=== PATIENT | female | born 1970 | race Caucasian/White ===

== ENCOUNTER → 2017-09-25 | Outpatient (CLI) | payer BC ==
[2017-09-25 09:44] LABS: BILIRUBIN,URINE NEGATIVE (NEG); CLARITY,URINE CLEAR; COLOR,URINE YELLOW; GLUCOSE,URINE NEGATIVE (NEG); NITRITE,URINE NEGATIVE (NEG); PH,URINE 5.5; PROTEIN,URINE NEGATIVE (NEG-TRACE); UROBILINOGEN,URINE 0.2 mg/dL (0.2 mg/dL)
[2017-09-25 09:50] LABS: INR 0.9 (0.8-1.1); PARTIAL THROMBOPLASTIN TIME 25 SEC (24-38); PROTHROMBIN TIME PATIENT 12.1 SEC (11.7-14.0)
[2017-09-25 10:12] LABS: BACTERIA,URINE FEW /HPF (0-FEW); RBC,URINE RARE /HPF (0-2); SQUAMOUS EPITHELIAL CELL,UR FEW /LPF; WBC,URINE OCC /HPF (0-4)
[2017-09-25 10:13] LABS: HYALINE CASTS, URINE FEW /HPF
[2017-09-25 21:15] LABS: MRSA BY PCR Negative (Negative)
== END | disposition home or self-care (01) ==
LOC: SURGPAT 12:49
DX: Z01.818 Encounter for other preprocedural examination (principal); I10 Essential (primary) hypertension
CPT/HCPCS: 36415; 71046; 81001; 85610; 85730; 87086; 87641; 93005

== ENCOUNTER 2017-10-17 08:34 | Inpatient (IN) | payer BC ==
[2017-10-17] MEDS: TRANEXAMIC ACID 1,000 MG in IV NS 50ML -- 2ND BAG INJ (08:00)
[~2017-10-17 08:34] MED LIST: LIDOCAINE 1% PF 2 ML VIAL. ID; MORPHINE SULFATE 4 MG/ML DISP.SYRIN. IV; ONDANSETRON PF 4 MG/2 ML VIAL. IV; PROCHLORPERAZINE 10 MG/2 ML VIAL. IV; fentaNYL PF VIAL 100 MCG/2 ML VIAL IV
[2017-10-17] MEDS ORDERED: FAMOTIDINE 20 MG/2 ML VIAL (09:00)
[2017-10-17] MEDS ORDERED: DEXAMETHASONE SOD PHOS 20 MG/5 ML VIAL. (09:00)
[2017-10-17] MEDS ORDERED: PROPOFOL 20 ML IV ×2 (09:00→14:20)
[2017-10-17] MEDS ORDERED: LIDOCAINE 2% PF Vial for OR 5 ML VIAL. (09:00)
[2017-10-17] MEDS ORDERED: ONDANSETRON PF 4 MG/2 ML VIAL. (09:00)
[2017-10-17] MEDS ORDERED: MIDAZOLAM HCL/PF 2 MG/2 ML VIAL. (09:01)
[2017-10-17] MEDS ORDERED: fentaNYL PF VIAL 100 MCG/2 ML VIAL ×4 (09:01→14:20)
[2017-10-17] MEDS ORDERED: ROCURONIUM 50 MG/5 ML VIAL. ×2 (09:01→14:20)
[2017-10-17] MEDS ORDERED: MORPHINE SULFATE 4 MG/ML DISP.SYRIN. IV ×4 (10:00)
[2017-10-17] MEDS ORDERED: HYDROcodone/APAP 7.5/325MG 1 TAB TABLET PO (10:00)
[2017-10-17] MEDS ORDERED: 0.9 % SODIUM CHLORIDE 10 ML DISP.SYRIN. IV (10:00)
[2017-10-17] MEDS ORDERED: oxyCODONE/APAP 5/325 1 TAB TABLET PO (10:00)
[2017-10-17] MEDS: IV RINGERS,LACTATED 1000ML 1,000 ML IV ×2 (10:00→13:17)
[2017-10-17] MEDS ORDERED: DEXTROSE 50% 25 GM / 50ML DISP.SYRIN. IV (10:00)
[2017-10-17] MEDS ORDERED: HYDROcodone/APAP 10/325 1 TAB TABLET PO (10:00)
[2017-10-17] MEDS ORDERED: CALCIUM CARBONATE 500 MG TAB.CHEW PO (10:00)
[2017-10-17] MEDS ORDERED: PROCHLORPERAZINE 10 MG/2 ML VIAL. IV (10:00)
[2017-10-17] MEDS ORDERED: ZOLPIDEM 5 MG TABLET. PO (10:00)
[2017-10-17] MEDS ORDERED: traMADol 50 MG TABLET PO ×2 (10:00)
[2017-10-17] MEDS ORDERED: ACETAMINOPHEN 325 MG TABLET. PO (10:00)
[2017-10-17] MEDS ORDERED: fentaNYL PF VIAL 100 MCG/2 ML VIAL IV ×2 (10:00)
[2017-10-17] MEDS: CELECOXIB 200 MG CAPSULE. PO ×2 (10:04→22:15)
[2017-10-17] MEDS: HYDROcodone/APAP 7.5/325MG 1 TAB TABLET PO (10:04)
[2017-10-17] MEDS: TRANEXAMIC ACID 1,000 MG in IV NS 50ML -- 1ST BAG INJ (10:25)
[2017-10-17 10:42] LABS: NEG OBC UR NEG; POS OBC UR POS; U PREG PATIENT NEGATIVE (NEG)
[2017-10-17] MEDS: MORPHINE SULFATE 5 MG, KETOROLAC 30 MG, ROPIVacaine 0.5% PF 60 ML, EPINEPHrine 0.5 MG i... INT ART (10:43)
[2017-10-17 10:48] LABS: PARTIAL THROMBOPLASTIN TIME 27 SEC (24-38)
[2017-10-17] MEDS ORDERED: GLYCOPYRROLATE 1 MG/5 ML VIAL. (11:39)
[2017-10-17] MEDS ORDERED: NEOSTIGMINE METHYLSULFATE 5 MG/5 ML SYRINGE. (11:39)
[2017-10-17] MEDS ORDERED: DESFLURANE 61 TO 120 MINUTES IH (11:43)
[2017-10-17] MEDS: diphenhydrAMINE 50 MG/ML VIAL IV (12:35)
[2017-10-17] MEDS: fentaNYL PF VIAL 100 MCG/2 ML VIAL IV ×2 (12:36→12:59)
[2017-10-17] MEDS ORDERED: PHENYLEPHRINE in 0.9% NACL PF 1 MG/10 ML SYRINGE. IV (14:20)
[2017-10-17] MEDS ORDERED: SEVOFLURANE 61 TO 120 MINUTES. IH (14:20)
[2017-10-17] MEDS: WARFARIN 7.5 MG TABLET. PO (16:42)
[2017-10-17] MEDS: FERROUS SULFATE 325 MG TABLET. PO (16:42)
[2017-10-17] MEDS: oxyCODONE/APAP 7.5/325 1 TAB TABLET PO ×2 (16:50→22:13)
[2017-10-17] MEDS: ALPRAZolam 0.5 MG TABLET PO (19:26)
[2017-10-17] MEDS: IV DEXTROSE 5 %-0.45 % NACL 1,000 ML IV ×2 (19:59→22:47)
[2017-10-17] MEDS ORDERED: VALACYCLOVIR HCL PO (21:00)
[2017-10-17] MEDS: busPIRone 5 MG TABLET. PO (22:14)
[2017-10-17] MEDS: DULoxetine HCL 30 MG CAPSULE.DR PO (22:15)
[2017-10-17] MEDS: HYDROXYCHLOROQUINE 200 MG TABLET PO (22:15)
[2017-10-18] MEDS: oxyCODONE/APAP 7.5/325 1 TAB TABLET PO ×5 (03:02→15:36)
[2017-10-18] MEDS: IV DEXTROSE 5 %-0.45 % NACL 1,000 ML IV (05:59)
[2017-10-18] MEDS ORDERED: MAGNESIUM HYDROXIDE 2,400 MG/30 ML ORAL.SUSP. PO (06:00)
[2017-10-18] MEDS: LEVOTHYROXINE 25 MCG TABLET. PO (06:13)
[2017-10-18 06:38] LABS: INR 1.6 (0.8-1.1); PROTHROMBIN TIME PATIENT 18.8 SEC (11.7-14.0)
[2017-10-18] MEDS: MULTIVITAMIN with MINERAL TABLET. PO (08:27)
[2017-10-18] MEDS: CELECOXIB 200 MG CAPSULE. PO (08:27)
[2017-10-18] MEDS: FERROUS SULFATE 325 MG TABLET. PO (08:27)
[2017-10-18] MEDS: SENNOSIDES/DOCUSATE 8.6/50MG TABLET. PO (08:27)
[2017-10-18] MEDS: HYDROXYCHLOROQUINE 200 MG TABLET PO (08:27)
[2017-10-18] MEDS: busPIRone 5 MG TABLET. PO (08:28)
[2017-10-18] MEDS: DULoxetine HCL 30 MG CAPSULE.DR PO (08:28)
[2017-10-18 09:36] LABS: HEMATOCRIT 35.3 % (36.0-47.0); HEMOGLOBIN 11.8 g/dL (12.0-15.5); MEAN CORPUSCULAR HEMOGLOBIN 32 pg (25-35); MEAN CORPUSCULAR HGB CONC 33 g/dL (31-37); MEAN CORPUSCULAR VOLUME 95 fL (79-100); PLATELET COUNT 271 x10^3/uL (140-400); RED CELL DISTRIBUTION WIDTH 13.5 % (11.5-14.5); WHITE BLOOD COUNT 9.7 x10^3/uL (4.0-11.0)
[2017-10-18] MEDS: WARFARIN 3 MG TABLET. PO (15:35)
[2017-10-18] MEDS ORDERED: BISACODYL 10 MG SUPP.RECT. PR (16:00)
[2017-10-24] MEDS ORDERED: METHOTREXATE SODIUM 10 MG PO (09:00)
== END 2017-10-18 15:45 | disposition home or self-care (01) | DRG 470 ==
LOC: OPSVCIP 08:34 → 4 SOUTHEST 13:49
PROC: 0SRC0L9 Replacement of Right Knee Joint with Medial Unicondylar Synthetic Substitute, Cemented, Open Approach (ICD-10-PCS; principal; 2017-10-17 10:08)
DX: M17.11 Unilateral primary osteoarthritis, right knee (principal); E03.9 Hypothyroidism, unspecified; F41.9 Anxiety disorder, unspecified; Z90.49 Acquired absence of other specified parts of digestive tract; Z83.3 Family history of diabetes mellitus
CPT/HCPCS: 36415; 73560; 81025; 85027; 85610; 85730; 86850; 86900; 86901; 88304; 88311; 97116-GP; 97150-GP; 97162-GP; 97165-GO; 97530-GP; 97535-GO; A7015; J0171; J0690; J1100; J1200; J1885; J2250; J2270; J2370; J2405; J2704; J2710; J2795; J3010; J3490; J7120; S0028